=== PATIENT | male | born 1935 | race Caucasian/White ===

== ENCOUNTER → 2017-12-08 | Outpatient (CLI) | payer MEDICARE | END | disposition home or self-care (01) | LOC: ECHO 10:16 | DX: I08.1 Rheumatic disorders of both mitral and tricuspid valves (principal); I27.20 Pulmonary hypertension, unspecified; R06.00 Dyspnea, unspecified; R53.83 Other fatigue; Z95.0 Presence of cardiac pacemaker | CPT/HCPCS: 93306 ==

== ENCOUNTER → 2018-12-13 | Outpatient (CLI) | payer MEDICARE ==
[~2018-12-13] MED LIST: TRAM50TA PO
--- NOTE | 2018-12-13 09:42 | CARD ---
MR#: [id number] Date of Study: 12/13/2018 Ordering Physician: IMELDA JARAMILLO, Referring Physician: IMELDA JARAMILLO, Tech: Funmi Neely APPROVED REPORT EXAM: Two-dimensional and M-mode echocardiogram with Doppler and color Doppler. Other Information Quality : AverageHR: 74bpm INDICATION Atrial Fibrillation Surgery/Intervention Pacemaker: RISK FACTORS Hypertension Hyperlipidemia Diabetes Previous smoker 2D DIMENSIONS RVDd3.3 (2.9-3.5cm)Left Atrium(2D)4.0 (1.6-4.0cm) IVSd1.2 (0.7-1.1cm)Aortic Root(2D)3.7 (2.0-3.7cm) LVDd5.4 (3.9-5.9cm)LVOT Diameter2.4 (1.8-2.4cm) PWd1.2 (0.7-1.1cm)LVDs3.3 (2.5-4.0cm) FS (%) 38.7 %SV98.1 ml LVEF(%)68.5 (>50%) Aortic Valve AoV Peak Pancho.239.1cm/sAoV VTI50.7cm AO Peak GR.22.9mmHgLVOT Peak Pancho.82.1cm/s LVOT VTI 19.14cmAO Mean GR.13mmHg VASHTI (VMAX)1.34qj8NOQ (VTI)1.70cm2 Mitral Valve MV E Peak Gr.132mmHg Pulmonary Valve PV Peak Rfskvcnd404.4cm/sPV Peak Grad.11mmHg Tricuspid Valve TR P. Ioeerxiy593ag/sRAP [id number] TR Peak Gr.66xbIiMTBP18mwJc Pulmonary Vein S1 Qkwvzkij55.2cm/sD2 Mcxkpdyq62.6cm/s PVa [id number] LEFT VENTRICLE The left ventricle is normal size. There is moderate concentric left ventricular hypertrophy. The lef t ventricular systolic function is normal. The Ejection Fraction is 55-60%. There is normal LV segmen shahida wall motion. Diastology indeterminent due to atrial fibrillation. RIGHT VENTRICLE The right ventricle is normal size. The right ventricle is mildly hypertrophied. The right ventricula r systolic function is normal. There is a pacemaker lead in the right ventricle. ATRIA The left atrium is mildly dilated. The right atrium is borderline dilated. The interatrial septum is intact with no evidence for an atrial septal defect or patent foramen ovale as noted on 2-D or Dopple r imaging. AORTIC VALVE The aortic valve is calcified but opens well. Doppler and Color Flow revealed trace aortic regurgitat ion. There is mild aortic stenosis. Calculated aortic valve area is 1.7 cm2 with maximum pressure gra dient of 22 mmHg and mean pressure gradient of 14 mmHg. MITRAL VALVE The mitral valve is normal in structure and function. There is no evidence of mitral valve prolapse. There is no mitral valve stenosis. Doppler and Color Flow revealed mild mitral regurgitation. TRICUSPID VALVE The tricuspid valve is not well visualized. Doppler and Color Flow revealed moderate tricuspid regurg itation with an estimated PAP of 58 mmHg. There is moderate pulmonary hypertension. There is no tricu spid valve stenosis. PULMONIC VALVE The pulmonic valve is not well visualized. Doppler and Color Flow revealed trace pulmonic valvular re gurgitation. GREAT VESSELS The aortic root is normal in size. The IVC is dilated and collapses <50% with inspiration. PERICARDIAL EFFUSION There is no evidence of significant pericardial effusion. Critical Notification Critical Value: No <Conclusion> The left ventricular systolic function is normal. The Ejection Fraction is 55-60%. There is normal LV segmental wall motion. There is a pacemaker lead in the right atrium and right ventricle. There is mild aortic stenosis. Mild mitral regurgitation. Moderate tricuspid regurgitation with an estimated PAP of 58 mmHg. There is no evidence of significant pericardial effusion. Signed by : Telly Bassett, Electronically Approved : 12/13/2018 09:41:09
--- NOTE | 2018-12-13 16:54 | RAD ---
MR#: [id number] Date of Study: 12/13/2018 Ordering Physician: IMELDA JARAMILLO, Referring Physician: IMELDA JARAMILLO, Tech: Jonas Szymanski MBA, RDMS, RVT, RDCS, RTR APPROVED REPORT Patient Location: OUT-PATIENT Indications AAA Duplex Results A/PTransverseLongitudinal Proximal Aorta 2.4cm2.7cm Distal Aorta 6.6cm6.3cm Doppler VelocityWaveform Distal Aorta 70.0 cm/sec Findings Grayscale images of the abdominal aorta were obtained and are technically limited due to body habitus . There are normal velocities in the aorta. The distal abdominal aorta appears to be dilated and grossly the dimensions appear to be approximatel y 6 cm with probable mural thrombus and a widely patent stent. Images are otherwise technically limit ed. Critical Notification Critical Value: No <Conclusion> 1. Probable endovascularly treated distal abdominal aortic aneurysm with a patent stent. Signed by : Imelda Jaramillo, Electronically Approved : 12/13/2018 16:51:47
== END | disposition home or self-care (01) ==
LOC: US 08:08
PROVIDERS: ATTEND Internal Medicine Cardiovascular Disease
DX: I08.3 Combined rheumatic disorders of mitral, aortic and tricuspid valves (principal); I27.20 Pulmonary hypertension, unspecified; I48.2 Chronic atrial fibrillation; I11.9 Hypertensive heart disease without heart failure; E78.5 Hyperlipidemia, unspecified; E11.9 Type 2 diabetes mellitus without complications; Z87.891 Personal history of nicotine dependence
CPT/HCPCS: 76770; 93306

== ENCOUNTER 2019-03-12 11:48 | Emergency (ER) | payer MEDICARE ==
[~2019-03-12] VITALS: Ht 182.9 cm; Wt 88.5 kg
[2019-03-12] MEDS ORDERED: traMADol 50 MG TABLET PO ONE ×2 (12:30→14:30)
[2019-03-12] MEDS ORDERED: fentaNYL PF VIAL 100 MCG/2 ML VIAL IV ONE (12:30)
[2019-03-12 12:53] LABS: BASO # 0.1 x10^3/uL (0.0-0.2); BASO % 1 % (0-3); EOS % 0 % (0-3); HEMATOCRIT 32.9 % (39.0-53.0); HEMOGLOBIN 10.5 g/dL (13.0-17.5); LYMPH # 0.3 x10^3/uL (1.0-4.8); LYMPH % 3 % (24-48); MEAN CORPUSCULAR HEMOGLOBIN 28 pg (25-35); MEAN CORPUSCULAR HGB CONC 32 g/dL (31-37); MEAN CORPUSCULAR VOLUME 87 fL (79-100); MONO % 9 % (0-9); NEUT # 9.7 x10^3uL (1.8-7.7); NEUT % 87 % (31-73); PLATELET COUNT 194 x10^3/uL (140-400); RED BLOOD COUNT 3.79 x10^6/uL (4.30-5.70); RED CELL DISTRIBUTION WIDTH 17.3 % (11.5-14.5); WHITE BLOOD COUNT 11.1 x10^3/uL (4.0-11.0)
[2019-03-12 13:01] LABS: CALCIUM 9.5 mg/dL (8.5-10.1); CREATININE 1.3 mg/dL (0.7-1.3); GFR 52.5; POTASSIUM 4.2 mmol/L (3.5-5.1)
--- NOTE | 2019-03-12 13:12 | RAD ---
KNEE RIGHT 3V History: RIGHT KNEE PAIN, SWELLING X3 DAYS AFTER FALL Comparison: None. Findings: 3 views right knee are submitted. There is fairly advanced osteoarthritic change of all 3 compartments. There is vascular calcification. There is small suprapatellar joint effusion. There is mild medial subluxation of the distal femur relative to the tibia. No definitive acute fracture is identified by radiographs, some irregularity of osteophytes associated with superior patella more likely chronic. Impression: 1. There is advanced tricompartmental osteoarthritic change. There is small suprapatellar joint effusion. No convincing acute fracture is identified by radiographs. Electronically signed by: Onel Davis MD (03/12/2019 1:09 PM) [facility]
[2019-03-12 14:00] VITALS: BP 139/82
[2019-03-12 14:04] LABS: % BANDS 3 % (0-9); % MONOS 6 % (0-10); PLT ESTIMATE ADEQUATE (ADEQUATE)
[2019-03-12 14:05] LABS: % LYMPHS 9 % (24-48); % SEGS 82 % (35-66); ANISOCYTOSIS SLIGHT
--- NOTE | 2019-03-12 14:08 | RAD ---
Right lower extremity venous doppler ultrasound History: Right knee injury and swelling Comparison: None Findings: Multiple grayscale, color, and duplex spectral analysis sonographic images were acquired of the right lower extremity veins to evaluate for the presence of DVT. There is normal phasicity. Normal compression, color-flow, and augmentation is demonstrated from the right common femoral to the popliteal veins. There is normal color flow of the proximal greater saphenous and profunda femoris veins. There is normal color flow of segments of the calf veins. There is a shadowing probably partially calcified nodule of the medial calf region about 3.2 x 0.6 x 1.3 cm in size. Impression: 1. There is no evidence of deep venous thrombosis from the right common femoral to the popliteal veins. 2. There is nonspecific shadowing, calcified lesion of the medial calf region. Electronically signed by: Onel Davis MD (03/12/2019 2:05 PM) [facility]
[2019-03-12] MEDS ORDERED: TRAM50TA PO (14:52)
--- NOTE | 2019-03-12 14:52 | PHYS DOC ---
Past Medical History Past Medical History: High Cholesterol, Hypertension Additional Past Surgical Histo: Radical neck, left knee replacement, Pacemaker, AAA, history of DVT Alcohol Use: None Drug Use: None Adult General Chief Complaint Chief Complaint: KNEE INJURY HPI HPI 84-year-old male presents to ER via POV for complaints of right knee pain and swelling. Patient states he struck his knee on his door on Wednesday and since has had increased swelling and pain. Patient states he has been able to walk but does have increased pain with weightbearing. Patient denies falling or having any other injuries. Pt reports swelling has extended into rt mid lower leg. He reports he is on Coumadin and does have previous hx of DVT. Review of Systems Review of Systems Constitutional: Denies fever or chills [] Respiratory: Denies cough or shortness of breath [] Cardiovascular: No additional information not addressed in HPI [] GI: Denies nausea, vomiting Musculoskeletal: Denies back pain. Reports rt knee pain/swelling Integument: Denies abrasions/bruising Neurologic: Denies headache, focal weakness or sensory changes. Denies numbness/tingling All other systems were reviewed and found to be within normal limits, except as documented in this note. Current Medications Current Medications Current Medications Medications (Trade) Dose Ordered Sig/Mary Start Time Stop Time Status Last Admin Dose Admin Fentanyl Citrate (Fentanyl 2ml Vial) 25 mcg 1X ONCE 03/12/19 12:30 03/12/19 12:46 DC 03/12/19 12:50 25 MCG Tramadol HCl (Ultram) 50 mg 1X ONCE 03/12/19 14:30 03/12/19 14:31 DC 03/12/19 14:27 50 MG Allergies Allergies Allergies Coded Allergies Type Severity Reaction Last Updated Verified No Known Drug Allergies 03/12/19 No Physical Exam Physical Exam Constitutional: Well developed, well nourished, no acute distress, non-toxic appearance. [] HENT: Normocephalic, atraumatic, oropharynx moist, nose normal. [] Eyes: Pupils equal, conjunctiva normal, no discharge. [] Neck: Normal range of motion, no tenderness, supple, no stridor. [] Cardiovascular:Heart rate regular rhythm, no murmur [] Lungs & Thorax: Bilateral breath sounds clear to auscultation- resp. equal/nonlabored Abdomen: Bowel sounds normal, soft, no tenderness Skin: Warm, dry, no erythema, no rash. [] Back: No tenderness, no CVA tenderness. [] Extremities: No cyanosis, no clubbing, 2+ bilat. dorsalis pedis/posterior tibial. Lt LE exam NL. Rt anterior knee swelling/tenderness on palp. Pt is able to perform ROM but has increased pain with movements. No palp. deformity/skin discoloration. Swelling extends into rt calf- no swelling rt ankle/foot. Calf nontender. Neurologic: Alert and oriented X 3, normal motor function, normal sensory function, no focal deficits noted. [] Psychologic: Affect normal, judgement normal, mood normal. [] Current Patient Data Vital Signs Vital Signs Date Time Temp Pulse Resp B/P (MAP) Pulse Ox O2 Delivery O2 Flow Rate FiO2 03/12/19 14:00 80 18 139/82 (101) 99 Room Air 03/12/19 12:02 98.3 98.3 Lab Values Laboratory Tests Test 03/12/19 12:39 White Blood Count 11.1 x10^3/uL (4.0-11.0) H Red Blood Count 3.79 x10^6/uL (4.30-5.70) L Hemoglobin 10.5 g/dL (13.0-17.5) L Hematocrit 32.9 % (39.0-53.0) L Mean Corpuscular Volume 87 fL (79-100) Mean Corpuscular Hemoglobin 28 pg (25-35) Mean Corpuscular Hemoglobin Concent 32 g/dL (31-37) Red Cell Distribution Width 17.3 % (11.5-14.5) H Platelet Count 194 x10^3/uL (140-400) Neutrophils (%) (Auto) 87 % (31-73) H Lymphocytes (%) (Auto) 3 % (24-48) L Monocytes (%) (Auto) 9 % (0-9) Eosinophils (%) (Auto) 0 % (0-3) Basophils (%) (Auto) 1 % (0-3) Neutrophils # (Auto) 9.7 x10^3uL (1.8-7.7) H Lymphocytes # (Auto) 0.3 x10^3/uL (1.0-4.8) L Monocytes # (Auto) 1.0 x10^3/uL (0.0-1.1) Eosinophils # (Auto) 0.0 x10^3/uL (0.0-0.7) Basophils # (Auto) 0.1 x10^3/uL (0.0-0.2) Segmented Neutrophils % 82 % (35-66) H Band Neutrophils % 3 % (0-9) Lymphocytes % 9 % (24-48) L Monocytes % 6 % (0-10) Platelet Estimate Adequate (ADEQUATE) Anisocytosis Slight Prothrombin Time 28.0 SEC (11.7-14.0) H Prothrombin Time INR 2.6 (0.8-1.1) H PTT 50 SEC (24-38) H Sodium Level 141 mmol/L (136-145) Potassium Level 4.2 mmol/L (3.5-5.1) Chloride Level 103 mmol/L (98-107) Carbon Dioxide Level 26 mmol/L (21-32) Anion Gap 12 (6-14) Blood Urea Nitrogen 29 mg/dL (8-26) H Creatinine 1.3 mg/dL (0.7-1.3) Estimated GFR (Cockcroft-Gault) 52.5 Glucose Level 228 mg/dL (70-99) H Calcium Level 9.5 mg/dL (8.5-10.1) Laboratory Tests 03/12/19 12:39 Laboratory Tests 03/12/19 12:39 EKG EKG [] Radiology/Procedures Radiology/Procedures PROCEDURE: KNEE RIGHT 3V KNEE RIGHT 3V History: RIGHT KNEE PAIN, SWELLING X3 DAYS AFTER FALL Comparison: None. Findings: 3 views right knee are submitted. There is fairly advanced osteoarthritic change of all 3 compartments. There is vascular calcification. There is small suprapatellar joint effusion. There is mild medial subluxation of the distal femur relative to the tibia. No definitive acute fracture is identified by radiographs, some irregularity of osteophytes associated with superior patella more likely chronic. Impression: 1. There is advanced tricompartmental osteoarthritic change. There is small suprapatellar joint effusion. No convincing acute fracture is identified by radiographs. Electronically signed by: Onel Davis MD (03/12/2019 1:09 PM) [facility] PROCEDURE: VENOUS LOWER EXTREMITY RIGHT Right lower extremity venous doppler ultrasound History: Right knee injury and swelling Comparison: None Findings: Multiple grayscale, color, and duplex spectral analysis sonographic images were acquired of the right lower extremity veins to evaluate for the presence of DVT. There is normal phasicity. Normal compression, color-flow, and augmentation is demonstrated from the right common femoral to the popliteal veins. There is normal color flow of the proximal greater saphenous and profunda femoris veins. There is normal color flow of segments of the calf veins. There is a shadowing probably partially calcified nodule of the medial calf region about 3.2 x 0.6 x 1.3 cm in size. Impression: 1. There is no evidence of deep venous thrombosis from the right common femoral to the popliteal veins. 2. There is nonspecific shadowing, calcified lesion of the medial calf region. Electronically signed by: Onel Davis MD (03/12/2019 2:05 PM) [facility] Course & Med Decision Making Course & Med Decision Making Pertinent Labs and Imaging studies reviewed. (See chart for details) 1440: Patient was evaluated in the ER for complaints of right knee swelling and pain after an injury. Patient had x-ray and ultrasound obtain with no findings for DVT or acute process- degenerative findings reported. Pt had labs as he is on Coumadin his INR is 2.6. Patient was given dose of IV fentanyl and reported improved right knee pain. Patient remains PMS intact in right lower extremity. RN had applied Kwame wrap to right knee and ambulated patient in the hallway with patient reporting pain had improved with walking. Following ambulation in hallway this provider discussed plan of care with patient. Admission was offered for further care/PT eval and patient is not wanting to be admitted and is r equesting being discharged home. Patient states he has walker he can use for ambulation. Patient states he would need follow-up with orthopedics will provide referral information on discharge paperwork. Education provided on s&s to return to ER for. RICE acronym and d/c instructions were discussed. Pt requested Tramadol for home d/c as he has done ok with that medication in past. Advised on slow position changes and use of walker for stability. Dragon Disclaimer Dragon Disclaimer This electronic medical record was generated, in whole or in part, using a voice recognition dictation system. Departure Departure Impression: Primary Impression: Knee pain, right Disposition: 01 HOME, SELF-CARE Condition: STABLE Referrals: PADMINI SIERRA MD (PCP) LIBRADO ARELLANO MD Patient Instructions: Knee Pain, Knee Wraps (Elastic Bandage) and RICE Additional Instructions: As discussed you can continue to take Tylenol as directed on container for additional pain relief. Use your walker anytime you are walking to prevent falls. If taking the tramadol slow position changes to make sure you are not dizzy when you stand up. Do not drive while taking the tramadol. Call as soon as possible to schedule follow-up appointment with orthopedics or your primary care physician for reevaluation and further care. Scripts Tramadol Hcl (TRAMADOL HCL) 50 Mg Tablet 50 MG PO Q6HRS PRN for PAIN, #8 TAB 0 Refills No driving or drinking alcohol while taking this medication Prov: DIEGO ASHBY APRN 03/12/19 DIEGO ASHBY APRN Mar 12, 2019 14:52
== END 2019-03-12 15:01 | disposition home or self-care (01) ==
LOC: ER 11:48
DX: M25.561 Pain in right knee (principal); M79.604 Pain in right leg; E78.00 Pure hypercholesterolemia, unspecified; I10 Essential (primary) hypertension; Z96.652 Presence of left artificial knee joint; Z95.0 Presence of cardiac pacemaker; Z86.718 Personal history of other venous thrombosis and embolism
CPT/HCPCS: 36415; 73562; 80048; 85007; 85025; 85610; 85730; 93971; 96374; 99285; J3010

== ENCOUNTER → 2019-11-17 | Outpatient (CLI) | payer MEDICARE ==
[~2019-11-17] MED LIST changes: +IOHEXOL 350 MG/ML 100 ML VIAL. IV ONE
[2019-11-17 13:21] LABS: CREATININE 1.1 mg/dL (0.7-1.3); GFR 63.6
--- NOTE | 2019-11-17 18:10 | RAD ---
Examination: CT ANGIO ABD ILEO/FEMOR RUNOFF History: Peripheral artery disease. Comparison/Correlation: None Findings: Noncontrast axial images of the abdomen and pelvis were obtained. Axial images were obtained from the level of the lower thoracic aorta through the distal phalanges of the feet according to arteriography protocol. Maximum intensity projection images were obtained. 3-D volume rendered images were provided. Sagittal and coronal reformatted images were provided. Delayed postcontrast images of the abdomen and pelvis were obtained. Calcified granuloma involves the posterior right lung base. Pacemaker leads are partially seen. Liver, spleen, pancreas, adrenal glands, and kidneys are unremarkable. Gallbladder fossa is unremarkable. Infrarenal abdominal aortic aneurysm which extends to the bifurcation is present. It measures 7.4 cm x 7.3 cm x 7.7 cm longitudinal. Bifurcated endoluminal stent graft is present within it. There is no endoleak identified. No kinking identified. The endoluminal stent graft is well opacified with contrast. High-grade stenoses of at least 75 percent are noted at the origins of the right and left internal iliac arteries. Right left external iliac arteries are patent. Diffuse calcific atheromatous involvement is present throughout the arterial vasculature of the lower extremities. There is no high-grade stenosis involving the right superficial femoral artery, profunda femoris artery, or popliteal artery. High-grade stenosis involving the origin of the right anterior tibial artery. No significant opacification is present involving the right anterior tibial artery beyond its very proximal extent. No significant contrast identified within the dorsalis pedis artery. High-grade stenosis of the left posterior tibial artery at its origin is also evident. Contrast opacification however is evident. Peroneal artery is identified opacified with contrast at the proximal calf level. There is no focal high-grade stenosis identified involving the left common femoral artery or left superficial femoral artery. The profunda femoris artery is also patent without high-grade focal stenosis. There is high-grade stenosis involving the proximal popliteal artery best seen on axial image #7 of series 162 and coronal image 28 of series 10. Stenosis of 80 percent is evident for a length of 2.5 cm. Evaluation is limited at the distal popliteal artery and trifurcation level due to left knee joint prosthesis and significant associated artifact. Plaque and thrombosis of the distal popliteal artery is notable with no opacification evident. Reconstitution more distally is noted. There is contrast opacification of the peroneal artery and the posterior tibial artery. Opacification of the anterior tibial artery proximally noted. Dorsalis pedis artery does not opacify with contrast. Surgical clips involve the left groin region. Significant right knee joint degenerative narrowing is present. No significant lordosis of lumbar spine noted. Multilevel degenerative disc space narrowing throughout the lumbar spine evident. Subcutaneous edema about the left ankle identified. Impression: Infrarenal abdominal aortic aneurysm is present. Bifurcated aortic stent graft is present with no endoleak or stenosis. High-grade stenoses of the internal iliac artery origins bilaterally noted. Extensive calcific atheromatous involvement of the entire bilateral lower extremity arterial vasculature. High-grade stenosis involving the origin of the right anterior tibial artery. No significant opacification is present involving the right anterior tibial artery beyond its very proximal extent. No significant contrast identified within the dorsalis pedis artery. High-grade stenosis of the left posterior tibial artery at its origin is also evident. High-grade stenosis of the proximal left popliteal artery. Lack of opacification of the distal popliteal artery. Lack of opacification of the left anterior tibial artery beyond this very proximal extent and lack of opacification of the dorsalis pedis artery noted. PQRS Compliance Statement: One or more of the following individualized dose reduction techniques were utilized for this examination: 1. Automated exposure control 2. Adjustment of the mA and/or kV according to patient size 3. Use of iterative reconstruction technique Electronically signed by: Homar Amaya MD (11/17/2019 6:07 PM) [facility]
--- NOTE | 2019-11-22 08:17 | RAD ---
MR#: [id number] Date of Study: 11/17/2019 Ordering Physician: IMELDA JARAMILLO, Referring Physician: IMELDA JARAMILLO, Tech: Funmi Ruiz, KAIDENMS, RVT, RTR APPROVED REPORT Patient Location: OUT-PATIENT Laterality:Bilateral Indications CVA/TIA: Risk Factors Hypertension: PAD Doppler Spectral Velocity Analysis Right Left pCCA 107/19 cm/spCCA 103/22 cm/s mCCA 94/19 cm/smCCA 101/17 cm/s dCCA 81/21 cm/sdCCA 67/10 cm/s Bulb 81/22 cm/sBulb 60/13 cm/s ECA 124/11 cm/sECA 131/12 cm/s pICA 70/19 cm/spICA 208/52 cm/s Krystina 156/40 cm/smICA 172/52 cm/s dICA 135/31 cm/sdICA 139/31 cm/s Vert. 38/5 cm/sVert. 25/8 cm/s ICA/CCA 1.46ICA/CCA 2.02 Findings Grayscale images of the bilateral common carotid, internal and external carotid vessels reveals moder ate diffuse plaque. There is intimal hyperplasia and wall thickening noted throughout the entire mcdaniel tid course. On the right side there is approximately a 50-69% stenosis by velocity criteria. On the left side the re is again a 50-69% stenosis by velocity criteria. The ICA to CCA ratios are at the upper limits of normal. The bilateral vertebral velocities are antegrade. Critical Notification Critical Value: No <Conclusion> 1. Moderate bilateral internal carotid arterial disease. Signed by : Imelda Jaramillo, Electronically Approved : 11/22/2019 08:16:39
--- NOTE | 2019-11-22 08:18 | RAD ---
MR#: [id number] Date of Study: 11/17/2019 Ordering Physician: IMELDA JARAMILLO, Referring Physician: IMELDA JARAMILLO, Tech: Funmi Ruiz, ABHAY, RVT, RTR APPROVED REPORT Patient Location: OUT-PATIENT Indications Bilateral Leg pain and swelling. Findings The bilateral lower extremity deep veins were evaluated for thrombus with color Doppler, spectral and grayscale images. On the right the grayscale images of the common femoral, superficial femoral and popliteal veins do n ot demonstrate any evidence of thrombus and these veins appear to be compressible. The below-knee vei ns were not well visualized but grossly appear to be compressible. Spectral imaging and color Doppler do not reveal any evidence of obstruction to flow with normal respirophasic variation above the knee . Below the knee there is spontaneous flow noted. On the left, the grayscale images of the common femoral, superficial femoral and popliteal veins do n ot demonstrate any evidence of thrombus and these veins appear to be compressible. The below-knee vei ns again were not well visualized but grossly appear to be compressible. Spectral imaging and color D oppler do not reveal any evidence of obstruction to flow with normal respirophasic variation above th e knee. The below-knee veins demonstrate spontaneous flow. Critical Notification Critical Value: No <Conclusion> 1. No evidence of DVT in the bilateral lower extremities. Technically limited study. Signed by : Imelda Jaramillo, Electronically Approved : 11/22/2019 08:17:57
--- NOTE | 2019-11-22 08:20 | RAD ---
MR#: [id number] Date of Study: 11/17/2019 Ordering Physician: IMELDA JARAMILLO, Referring Physician: IMELDA JARAMILLO, Tech: Funmi Ruiz RDMS, RVT, RTR APPROVED REPORT Patient Location : OUT-PATIENT Indications Lower Extremity Pain : Bilateral Lower Extremity Edema : Bilateral Greater Saphenous Veins (GSV) Significant venous relux noted in the RIGHT GSV at the following levels : Superficial Femoral Junctio n, Proximal Thigh, Mid Thigh, Distal Thigh, Proximal Calf, Mid Calf, Distal Calf Significant venous relux noted in the LEFT GSV at the following levels : Superficial Femoral Junction , Proximal Thigh, Mid Thigh, Distal Thigh, Proximal Calf, Mid Calf, Distal Calf Findings Grayscale images of the bilateral saphenofemoral junctions are grossly unremarkable. The right great saphenous vein measures 6.2 mm in the left great saphenous vein measures 7.7 mm. There is maximum ref lux time of 3.2 seconds on the right side and 2.5 seconds on the left side. Bilateral lesser saphenous veins do not show any evidence of reflux. Critical Notification Critical Value: No <Conclusion> 1. Positive for reflux in the bilateral greater saphenous veins Signed by : Imelda Jaramillo, Electronically Approved : 11/22/2019 08:19:27
== END | disposition home or self-care (01) ==
LOC: US 12:02
PROVIDERS: ATTEND Internal Medicine Cardiovascular Disease
DX: I71.4 Abdominal aortic aneurysm, without rupture (principal); I77.4 Celiac artery compression syndrome; I65.23 Occlusion and stenosis of bilateral carotid arteries; I10 Essential (primary) hypertension; I87.2 Venous insufficiency (chronic) (peripheral)
CPT/HCPCS: 36415; 75635; 82565; 84520; 93880; 93970; Q9967

== ENCOUNTER 2020-06-10 09:59 | Emergency (ER) | payer MEDICARE ==
[~2020-06-10] VITALS: Ht 182.9 cm; Wt 93.2 kg
[~2020-06-10 09:59] MED LIST changes: -IOHEXOL 350 MG/ML 100 ML VIAL. IV ONE
[2020-06-10] MEDS ORDERED: AMLO5TAB10 PO (10:38)
[2020-06-10] MEDS ORDERED: METF500T16 PO (10:38)
[2020-06-10] MEDS ORDERED: FINA5TAB4 PO (10:38)
[2020-06-10] MEDS ORDERED: ATEN50TA PO (10:38)
[2020-06-10] MEDS ORDERED: LISI-379 PO (10:38)
[2020-06-10] MEDS ORDERED: HYDR12.58 PO (10:38)
[2020-06-10] MEDS ORDERED: PANT20TA2 PO (10:38)
[2020-06-10] MEDS ORDERED: ACET325T9 PO (10:38)
[2020-06-10] MEDS ORDERED: SIMV20TA18 PO (10:38)
[2020-06-10] MEDS ORDERED: WARF7.5T48 PO (10:38)
[2020-06-10] MEDS ORDERED: DIGO125T3 PO (10:38)
[2020-06-10] MEDS ORDERED: NIAC500T51 PO (10:38)
[2020-06-10 11:50] LABS: BASO # 0.1 x10^3/uL (0.0-0.2); BASO % 1 % (0-3); EOS # 0.4 x10^3/uL (0.0-0.7); EOS % 4 % (0-3); HEMATOCRIT 28.3 % (39.0-53.0); HEMOGLOBIN 9.4 g/dL (13.0-17.5); LYMPH # 0.6 x10^3/uL (1.0-4.8); LYMPH % 7 % (24-48); MEAN CORPUSCULAR HEMOGLOBIN 29 pg (25-35); MEAN CORPUSCULAR HGB CONC 33 g/dL (31-37); MEAN CORPUSCULAR VOLUME 86 fL (79-100); MONO # 0.9 x10^3/uL (0.0-1.1); MONO % 11 % (0-9); NEUT # 6.5 x10^3/uL (1.8-7.7); NEUT % 77 % (31-73); PLATELET COUNT 167 x10^3/uL (140-400); RED BLOOD COUNT 3.29 x10^6/uL (4.30-5.70); RED CELL DISTRIBUTION WIDTH 17.6 % (11.5-14.5); WHITE BLOOD COUNT 8.4 x10^3/uL (4.0-11.0)
[2020-06-10 12:00] LABS: CALCIUM 9.2 mg/dL (8.5-10.1); CREATININE 1.2 mg/dL (0.7-1.3); GFR 57.4; POTASSIUM 4.4 mmol/L (3.5-5.1)
[2020-06-10 12:06] LABS: ALBUMIN 3.4 g/dL (3.4-5.0); MAGNESIUM 1.9 mg/dL (1.8-2.4); PROTHROMBIN TIME PATIENT 35.6 SEC (11.7-14.0); TOTAL BILIRUBIN 0.7 mg/dL (0.2-1.0); TOTAL PROTEIN 6.8 g/dL (6.4-8.2)
[2020-06-10 14:10] VITALS: BP 148/83
--- NOTE | 2020-06-10 14:13 | PHYS DOC ---
Past Medical History Past Medical History: A-Fib, Diabetes-Type II, DVT, GERD, High Cholesterol, Hypertension, Vascular Disease Past Surgical History: Pacemaker Additional Past Surgical Histo: Radical neck, left knee replacement, AAA, history of DVT; hemorrhoid Smoking Status: Former Smoker Alcohol Use: Occasionally Drug Use: None General Adult EDM: Chief Complaint: LOWER EXTREMITY SWELLING HPI: HPI: Patient is a 85 year old PRESENTED with chronic buttock wound that he has been dealing with for two years, bilateral legs swelling and wound on toes that he has been dealing with for several months. Patient has been evaluated by his family doctor, [facility] and at the [facility]. He said the legs swelling improved if he wears stocking. No fever, no chest pain, no shortness of air. Review of Systems: Review of Systems: Constitutional: Denies fever or chills. [] Eyes: Denies change in visual acuity. [] HENT: Denies nasal congestion or sore throat. [] Respiratory: Denies cough or shortness of breath. [] Cardiovascular: Denies chest pain or edema. [] GI: Denies abdominal pain, nausea, vomiting, bloody stools or diarrhea. [] : Denies dysuria. [] Musculoskeletal: Denies back pain or joint pain. [] Integument: Positive for chronic wound on buttock, right foot wound , legs swelling. Neurologic: Denies headache, focal weakness or sensory changes. [] Endocrine: Denies polyuria or polydipsia. [] Lymphatic: Denies swollen glands. [] Psychiatric: Denies depression or anxiety. [] Heart Score: Risk Factors: Risk Factors: DM, Current or recent (<one month) smoker, HTN, HLP, family history of CAD, obesity. Risk Scores: Score 0 - 3: 2.5% MACE over next 6 weeks - Discharge Home Score 4 - 6: 20.3% MACE over next 6 weeks - Admit for Clinical Observation Score 7 - 10: 72.7% MACE over next 6 weeks - Early Invasive Strategies Allergies: Allergies: Allergies Coded Allergies Type Severity Reaction Last Updated Verified No Known Drug Allergies 03/12/19 No Physical Exam: PE: Constitutional: Well developed, well nourished, no acute distress, non-toxic appearance. [] HENT: Normocephalic, atraumatic, bilateral external ears normal, oropharynx moist, no oral exudates, nose normal. [] Eyes: PERRLA, EOMI, conjunctiva normal, no discharge. [] Neck: Normal range of motion, no tenderness, supple, no stridor. [] Cardiovascular:Heart rate regular rhythm, no murmur [] Lungs & Thorax: Bilateral breath sounds clear to auscultation [] Abdomen: Bowel sounds normal, soft, no tenderness, no masses, no pulsatile masses. [] Skin: Warm, dry, no erythema, no rash. [] Back: No tenderness, no CVA tenderness. [] Extremities: No tenderness, no cyanosis, no clubbing, ROM intact, bilateral legs edema, 2 plus, with clear weeping drainage, nonhealing wound on right great toe at the proximal phalangeal joint. Neurologic: Alert and oriented X 3, normal motor function, normal sensory function, no focal deficits noted. [] Psychologic: Affect normal, judgement normal, mood normal. [] Current Patient Data: Labs: Laboratory Tests Test 06/10/20 11:43 White Blood Count 8.4 x10^3/uL (4.0-11.0) Red Blood Count 3.29 x10^6/uL (4.30-5.70) L Hemoglobin 9.4 g/dL (13.0-17.5) L Hematocrit 28.3 % (39.0-53.0) L Mean Corpuscular Volume 86 fL (79-100) Mean Corpuscular Hemoglobin 29 pg (25-35) Mean Corpuscular Hemoglobin Concent 33 g/dL (31-37) Red Cell Distribution Width 17.6 % (11.5-14.5) H Platelet Count 167 x10^3/uL (140-400) Neutrophils (%) (Auto) 77 % (31-73) H Lymphocytes (%) (Auto) 7 % (24-48) L Monocytes (%) (Auto) 11 % (0-9) H Eosinophils (%) (Auto) 4 % (0-3) H Basophils (%) (Auto) 1 % (0-3) Neutrophils # (Auto) 6.5 x10^3/uL (1.8-7.7) Lymphocytes # (Auto) 0.6 x10^3/uL (1.0-4.8) L Monocytes # (Auto) 0.9 x10^3/uL (0.0-1.1) Eosinophils # (Auto) 0.4 x10^3/uL (0.0-0.7) Basophils # (Auto) 0.1 x10^3/uL (0.0-0.2) Prothrombin Time 35.6 SEC (11.7-14.0) H Prothrombin Time INR 3.5 (0.8-1.1) H Activated Partial Thromboplast Time 79 SEC (24-38) H Sodium Level 140 mmol/L (136-145) Potassium Level 4.4 mmol/L (3.5-5.1) Chloride Level 106 mmol/L (98-107) Carbon Dioxide Level 30 mmol/L (21-32) Anion Gap 4 (6-14) L Blood Urea Nitrogen 34 mg/dL (8-26) H Creatinine 1.2 mg/dL (0.7-1.3) Estimated GFR (Cockcroft-Gault) 57.4 BUN/Creatinine Ratio 28 (6-20) H Glucose Level 138 mg/dL (70-99) H Calcium Level 9.2 mg/dL (8.5-10.1) Magnesium Level 1.9 mg/dL (1.8-2.4) Total Bilirubin 0.7 mg/dL (0.2-1.0) Aspartate Amino Transferase (AST) 12 U/L (15-37) L Alanine Aminotransferase (ALT) 14 U/L (16-63) L Alkaline Phosphatase 51 U/L (46-116) GM-Dpd-U-Type Natriuretic Peptide 1438 pg/mL (0-449) H Total Protein 6.8 g/dL (6.4-8.2) Albumin 3.4 g/dL (3.4-5.0) Albumin/Globulin Ratio 1.0 (1.0-1.7) Laboratory Tests 06/10/20 11:43 Laboratory Tests 06/10/20 11:43 Vital Signs: Vital Signs Date Time Temp Pulse Resp B/P (MAP) Pulse Ox O2 Delivery O2 Flow Rate FiO2 06/10/20 10:05 98.2 90 16 107/55 (72) 98 Room Air 98.2 EKG: EKG: [] Radiology/Procedures: Radiology/Procedures: [] Course & Med Decision Making: Course & Med Decision Making Pertinent Labs and Imaging studies reviewed. 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 Dragon Disclaimer: Dragon Disclaimer: This electronic medical record was generated, in whole or in part, using a voice recognition dictation system. Departure Departure Impression: Primary Impression: Peripheral edema Additional Impressions: Chronic ulcer of buttock Pressure ulcer of right foot, stage 2 Disposition: 01 HOME, SELF-CARE Condition: STABLE Referrals: PADMINI SIERRA MD (PCP) IMELDA JARAMILLO MD PLEASE FOLLOW UP WITH YOUR PI/SENIOR RESEARCH ASSOCIATE FOR OUTPATIENT EVALUATION OF YOUR LEGS EDEMA NEFTALI NIXON DO PLEASE FOLLOW UP WITH THE WOUND CARE PHYSICIAN THIS WEEK. Patient Instructions: Peripheral Edema, Pressure Ulcer Additional Instructions: Thank you for visiting our Emergency Department. We appreciate you trusting us with your care. If any additional problems come up don't hesitate to return to visit us. Please follow up with your primary care provider so they can plan additional care if needed and know about the problem that you had. If symptoms worsen come back to the Emergency Department. Any concerning symptoms that start such as chest pain, shortness of air, weakness or numbness on one side of the body, running high fevers or any other concerning symptoms return to the ER. Justicifation of Admission Dx: Justifications for Admission: Justification of Admission Dx: N/A REBECCA EPPS DO Jun 10, 2020 14:13
== END 2020-06-10 14:25 | disposition home or self-care (01) ==
LOC: ER 09:59
DX: R60.0 Localized edema (principal); L98.419 Non-pressure chronic ulcer of buttock with unspecified severity; L89.899 Pressure ulcer of other site, unspecified stage; E11.9 Type 2 diabetes mellitus without complications; K21.9 Gastro-esophageal reflux disease without esophagitis; E78.00 Pure hypercholesterolemia, unspecified; I10 Essential (primary) hypertension; Z86.718 Personal history of other venous thrombosis and embolism; Z98.890 Other specified postprocedural states; Z87.891 Personal history of nicotine dependence; Z95.0 Presence of cardiac pacemaker
CPT/HCPCS: 36415; 80053; 83735; 83880; 85025; 85610; 85730; 99285

== ENCOUNTER → 2020-06-14 | Outpatient (CLI) | payer MEDICARE ==
[2020-06-10 14:10] VITALS: BP 148/83
[~2020-06-14] MED LIST changes: +ACET325T9 PO; +AMLO5TAB10 PO; +ATEN50TA PO; +DIGO125T3 PO; +FINA5TAB4 PO; +HYDR12.58 PO; +LISI-379 PO; +METF500T16 PO; +NIAC500T51 PO; +PANT20TA2 PO; +SIMV20TA18 PO; +WARF7.5T48 PO
--- NOTE | 2020-06-14 16:59 | CARD ---
MR#: [id number] Date of Study: 06/14/2020 Ordering Physician: IMELDA JARAMILLO, Referring Physician: IMELDA JARAMILLO, Tech: Effie Ma [facility] APPROVED REPORT EXAM: Two-dimensional and M-mode echocardiogram with Doppler and color Doppler. Other Information Quality : Fair INDICATION Congestive Heart Failure Pacemaker 2D DIMENSIONS RVDd3.1 (2.9-3.5cm)Left Atrium(2D)4.7 (1.6-4.0cm) IVSd1.3 (0.7-1.1cm)Aortic Root(2D)3.4 (2.0-3.7cm) LVDd4.0 (3.9-5.9cm)LVOT Diameter2.5 (1.8-2.4cm) PWd1.3 (0.7-1.1cm)LVDs2.9 (2.5-4.0cm) FS (%) 28.1 %SV38.4 ml LVEF(%)55.0 (>50%) Aortic Valve AoV Peak Pancho.236.4cm/sAoV VTI49.4cm AO Peak GR.22.4mmHgLVOT Peak Pancho.80.3cm/s AO Mean GR.13mmHgAVA (VMAX)1.64cm2 VASHTI (VTI)2.00cm2 Tricuspid Valve TR P. [id number] [id number] TR Peak Gr.[id number] LEFT VENTRICLE The left ventricle is normal size. There is mild concentric left ventricular hypertrophy. The left ve ntricular systolic function is normal and the ejection fraction is within normal range. The Ejection Fraction is 60-65%. There is normal LV segmental wall motion. Tissue Doppler imaging reveals moderate left ventricular diastolic dysfunction. No left ventricle thrombus noted on this study. RIGHT VENTRICLE The right ventricle is mildly dilated. The right ventricular systolic function is normal. There is a pacemaker lead in the right ventricle. ATRIA The left atrium is mildly dilated. The right atrium is mildly dilated. A pacemaker is seen in the rig ht atrium consistent with history. The interatrial septum is intact with no evidence for an atrial se ptal defect or patent foramen ovale as noted on 2-D or Doppler imaging. AORTIC VALVE The aortic valve is moderately thickened but opens well. Doppler and Color Flow revealed no significa nt aortic regurgitation. There is no significant aortic valvular stenosis. MITRAL VALVE The mitral valve is mildly thickened. There is no mitral valve stenosis. Doppler and Color-flow revea led mild mitral regurgitation. TRICUSPID VALVE The tricuspid valve is normal in structure and function. Doppler and Color Flow revealed mild to mode rate tricuspid regurgitation. There is moderate pulmonary hypertension. The PA pressure was estimated at 48 mmHg. There is no tricuspid valve stenosis. PULMONIC VALVE The pulmonic valve is not well visualized. Doppler and Color Flow revealed trace to mild pulmonic marcela vular regurgitation. There is no pulmonic valvular stenosis. GREAT VESSELS The aortic root is normal in size. The ascending aorta is mildly dilated at 3.5 cm. The IVC is normal in size and collapses >50% with inspiration. PERICARDIAL EFFUSION There is no evidence of significant pericardial effusion. Critical Notification Critical Value: No <Conclusion> The left ventricular systolic function is normal and the ejection fraction is within normal range. Th e Ejection Fraction is 60-65%. There is normal LV segmental wall motion. The right ventricle is mildly dilated. There is a pacemaker lead in the right ventricle. Doppler and Color Flow revealed mild to moderate tricuspid regurgitation. There is moderate pulmonary hypertension. The PA pressure was estimated at 48 mmHg. The ascending aorta is mildly dilated at 3.5 cm. Signed by : Imelda Jaramillo, Electronically Approved : 06/14/2020 16:59:01
== END | disposition home or self-care (01) ==
LOC: ECHO 13:44
PROVIDERS: ATTEND Internal Medicine Cardiovascular Disease
DX: I08.8 Other rheumatic multiple valve diseases (principal); I50.33 Acute on chronic diastolic (congestive) heart failure; I27.20 Pulmonary hypertension, unspecified
CPT/HCPCS: 93306

== ENCOUNTER → 2020-06-14 | Outpatient (CLI) | payer MEDICARE ==
[2020-06-10 14:10] VITALS: BP 148/83
--- NOTE | 2020-06-14 17:13 | RAD ---
EXAM: Lower extremity arterial Doppler sonogram with ankle-brachial indices (DEMETRI). HISTORY: Peripheral vascular disease. Nonhealing wound TECHNIQUE: Doppler sonographic evaluation of the lower extremities was performed and pressure readings were assessed. FINDINGS: Right brachial pressure: 123 mmHg Left brachial pressure: 106 mmHg Right ankle pressure (dorsalis pedis artery): 125 mmHg Right ankle pressure (posterior tibial artery): 141 mmHg Right DEMETRI: 1.15 Left ankle pressure (dorsalis pedis artery): 116 mmHg Left ankle pressure (posterior tibial artery): 125 mmHg Left DEMETRI: 1.02 There is mild relative increased peak systolic velocity within the distal left superficial femoral artery measuring 127 cm/s. There is atherosclerotic plaque within this vessel. There is suspected segmental occlusion of the proximal left posterior tibial artery. The left peroneal artery is not seen. IMPRESSION: 1. Suspected hemodynamically significant stenosis involving the distal left superficial femoral artery and segmental occlusion of the proximal aspect of the left posterior tibial artery. The left peroneal artery is not seen and may also be occluded or partially occluded. 2. Normal bilateral ankle-brachial indices. Electronically signed by: Adri Rios MD (06/14/2020 5:10 PM) [id number]
== END | disposition home or self-care (01) ==
LOC: US 13:59
PROVIDERS: ATTEND Preventive Medicine Undersea and Hyperbaric Medicine
DX: S81.802D Unspecified open wound, left lower leg, subsequent encounter (principal); I70.202 Unspecified atherosclerosis of native arteries of extremities, left leg; X58.XXXD Exposure to other specified factors, subsequent encounter
CPT/HCPCS: 93922; 93923

== ENCOUNTER → 2020-07-15 | Outpatient (CLI) | payer MEDICARE ==
--- NOTE | 2020-07-15 14:56 | CARD ---
MR#: [id number] Date of Study: 07/15/2020 Ordering Physician: WARREN BASSETT, Referring Physician: WARREN BASSETT, Tech: Funmi Ruiz RVT; Erasmo FERNANDEZ APPROVED REPORT Patient StatusOUT-PATIENT Sound Equipment Mechanic: Funmi Ruiz RVT; Erasmo JACK;CARMELA Procedure(s) performed: Endovenous Vena Seal ablation of the left greater saphenous vein. INDICATION FOR PROCEDURE The indication(s) include : Symptomatic Chronic Venous Insufficiency with Varicose Veins, lower extre mity pain and edema. PROCEDURE NARRATIVE After explaining the risks, benefits and alternative options, informed consent was obtained from tiffanie ent. Patient was brought to the procedure suite and duplex ultrasound was used to map out the insuffi cient saphenous vein. The access site was determined and marked on the overlying skin. The depth and diameter of the vein (s) to be treated was documented. The patient was placed supine on the procedure table and the leg was prepped and draped using sterile technique. Ultrasound guidance was again used to localize the access site. 1% lidocaine was injected into the sk in and subcutaneous tissues for local anesthesia. Using ultrasound guidance, access was obtained in t he saphenous vein with a 19-gauge thin-walled needle followed by introduction of a short guidewire. T he intraluminal location was confirmed with ultrasound and a 7 Vietnamese 7 cm sheath was inserted into t he vein. A 0.035 inch guidewire from the Venaseal kit was then introduced and positioned at the saphe nofemoral junction using ultrasound guidance. The 80 cm 7 Vietnamese introducer sheath/dilator was positi oned 5 cm from the saphenofemoral junction. The guidewire and dilator were removed and the remaining sheath was flushed with sterile saline, with the syringe remaining in place prior to the next steps. The Cyanoacrylate adhesive was loaded into a 3 cc syringe that was then attached to the 5F delivery c athter and loaded on to the Dispenser gun.The catheter was primed precisely and this 'assembly' was i ntroduced through the 7 Vietnamese sheath and positioned 5 cm caudal to the saphenofemoral junction under ultrasound guidance. While applying compression cephalad to the cathter tip with the ultrasound holcomb sducer, 0.10 cc of the VenaSeal adhesive was delivered into the vein by pulling the trigger of the [employer] anca gun. The catheter was pulled back 1 cm and another 0.10 cc of the adhesive was delivered foll owing which the catheter was pulled back 3 cm. Compression was applied over the vein for 3 minutes. T he catheter tip position was confirmed again using the ultrasound, 0.10 cc Venaseal adhesive delivere d, catheter pulled back 3 cm and compression applied for 30 seconds. These steps were repeated to tr eat the entire length of the incompetent vein. Following the last injection and compression sequence, the catheter and introducer sheath were pulled out from the access site. Hemostasis was achieved with manual compression and an adhesive bandage wa s applied to the incision. Ultrasound confirmed complete coaptation and closure of the treated segmen ts of the greater saphenous vein, and the absence of any DVT at the saphenofemoral junction. Treated length was 65 cm. The drapes were removed and the patient cleaned and prepared for discharge. Patient tolerated the pro cedure well. There were no immediate complications. Postop ultrasound check scheduled for 48-72 hours and the patient was given written postop instructions. Signed by : Warren Bassett, Electronically Approved : 07/15/2020 14:55:41
== END | disposition home or self-care (01) ==
LOC: VNUS 13:40 → EDSTATUS 17:01
PROVIDERS: ATTEND Internal Medicine Cardiovascular Disease
DX: I83.12 Varicose veins of left lower extremity with inflammation (principal); I10 Essential (primary) hypertension; K21.0 Gastro-esophageal reflux disease with esophagitis; E78.00 Pure hypercholesterolemia, unspecified; Z79.899 Other long term (current) drug therapy
CPT/HCPCS: 36482

== ENCOUNTER → 2020-07-16 | Outpatient (CLI) | payer MEDICARE ==
--- NOTE | 2020-07-16 13:50 | CARD ---
MR#: [id number] Date of Study: 07/16/2020 Ordering Physician: WARREN BASSETT, Referring Physician: WARREN BASSETT, Tech: Funmi Ruiz RVT; Erasmo JACK;CARMELA APPROVED REPORT Patient StatusOUT-PATIENT Beef Splitter: Funmi Ruiz RVT; Erasmo JACK;CARMELA Procedure(s) performed: Endovenous Vena Seal ablation of the Right greater saphenous vein. HISTORY : The patient is a 85 year-old male with a history of . INDICATION FOR PROCEDURE The indication(s) include : Symptomatic Chronic Venous Insufficiency with Varicose Veins, lower extre mity pain and edema. PROCEDURE NARRATIVE After explaining the risks, benefits and alternative options, informed consent was obtained from tiffanie ent. Patient was brought to the procedure suite and duplex ultrasound was used to map out the insuffi cient saphenous vein. The access site was determined and marked on the overlying skin. The depth and diameter of the vein (s) to be treated was documented. The patient was placed supine on the procedure table and the leg was prepped and draped using sterile technique. Ultrasound guidance was again used to localize the access site. 1% lidocaine was injected into the sk in and subcutaneous tissues for local anesthesia. Using ultrasound guidance, access was obtained in t he saphenous vein with a 19-gauge thin-walled needle followed by introduction of a short guidewire. T he intraluminal location was confirmed with ultrasound and a 7 Macedonian 7 cm sheath was inserted into t he vein. A 0.035 inch guidewire from the Venaseal kit was then introduced and positioned at the saphe nofemoral junction using ultrasound guidance. The 80 cm 7 Macedonian introducer sheath/dilator was positi oned 5 cm from the saphenofemoral junction. The guidewire and dilator were removed and the remaining sheath was flushed with sterile saline, with the syringe remaining in place prior to the next steps. The Cyanoacrylate adhesive was loaded into a 3 cc syringe that was then attached to the 5F delivery c athter and loaded on to the Dispenser gun.The catheter was primed precisely and this 'assembly' was i ntroduced through the 7 Macedonian sheath and positioned 5 cm caudal to the saphenofemoral junction under ultrasound guidance. While applying compression cephalad to the cathter tip with the ultrasound holcomb sducer, 0.10 cc of the VenaSeal adhesive was delivered into the vein by pulling the trigger of the di anca gun. The catheter was pulled back 1 cm and another 0.10 cc of the adhesive was delivered foll owing which the catheter was pulled back 3 cm. Compression was applied over the vein for 3 minutes. T he catheter tip position was confirmed again using the ultrasound, 0.10 cc Venaseal adhesive delivere d, catheter pulled back 3 cm and compression applied for 30 seconds. These steps were repeated to tr eat the entire length of the incompetent vein. Following the last injection and compression sequence, the catheter and introducer sheath were pulled out from the access site. Hemostasis was achieved with manual compression and an adhesive bandage wa s applied to the incision. Ultrasound confirmed complete coaptation and closure of the treated segmen ts of the greater saphenous vein, and the absence of any DVT at the saphenofemoral junction. Treated length was 74 cm. The drapes were removed and the patient cleaned and prepared for discharge. Patient tolerated the pro cedure well. There were no immediate complications. Postop ultrasound check scheduled for 48-72 hours and the patient was given written postop instructions. Signed by : Warren Bassett, Electronically Approved : 07/16/2020 13:50:18
== END | disposition home or self-care (01) ==
LOC: VNUS 12:33
PROVIDERS: ATTEND Internal Medicine Cardiovascular Disease
DX: I87.2 Venous insufficiency (chronic) (peripheral) (principal); I83.892 Varicose veins of left lower extremity with other complications; I10 Essential (primary) hypertension; E11.9 Type 2 diabetes mellitus without complications; K21.9 Gastro-esophageal reflux disease without esophagitis; Z79.899 Other long term (current) drug therapy; Z87.891 Personal history of nicotine dependence
CPT/HCPCS: 36482

== ENCOUNTER → 2020-07-17 | Outpatient (CLI) | payer MEDICARE ==
--- NOTE | 2020-07-18 13:31 | RAD ---
MR#: [id number] Date of Study: 07/17/2020 Ordering Physician: IMELDA JARAMILLO, Referring Physician: IMELDA JARAMILLO, Tech: Funmi Ruiz RDMS, RVT, RTR APPROVED REPORT Bilateral Lower Extremity Venous Study for DVT Patient Location: OUT-PATIENT Indications Post Op Bilateral GSV Vena Seal Ablation; Check for DVT Risk Factors Bilateral Lower Extremity Venous Insufficiency Findings The bilateral lower extremity deep veins were evaluated for thrombus with color Doppler, spectral and grayscale images. On the right the grayscale images of the common femoral, superficial femoral and popliteal veins do n ot demonstrate any evidence of thrombus and these veins appear to be compressible. The below-knee vei ns were not well visualized but grossly appear to be compressible. Spectral imaging and color Doppler do not reveal any evidence of obstruction to flow with normal respirophasic variation above the knee . Below the knee there is spontaneous flow noted. On the left, the grayscale images of the common femoral, superficial femoral and popliteal veins do n ot demonstrate any evidence of thrombus and these veins appear to be compressible. The below-knee vei ns again were not well visualized but grossly appear to be compressible. Spectral imaging and color D oppler do not reveal any evidence of obstruction to flow with normal respirophasic variation above th e knee. The below-knee veins demonstrate spontaneous flow. Critical Notification Critical Value: No <Conclusion> 1. Negative for DVT in the BLE 2. Successful bilateral GSV ablation. Signed by : Imleda Jaramillo, Electronically Approved : 07/18/2020 13:30:54
== END | disposition home or self-care (01) ==
LOC: US 12:00
PROVIDERS: ATTEND Internal Medicine Cardiovascular Disease
DX: I87.2 Venous insufficiency (chronic) (peripheral) (principal)
CPT/HCPCS: 93970